=== PATIENT | female | born 1950 | race Caucasian/White ===

== ENCOUNTER 2017-09-01 15:15 | Inpatient (IN) | payer OTHER ==
[~2017-09-01] VITALS: Ht 152.4 cm; Wt 54.4 kg
[2017-09-02] MEDS ORDERED: EVISTA60 MG PO (08:42)
[2017-09-02] MEDS ORDERED: GABAPENTIN400 MG PO (08:42)
[2017-09-02] MEDS ORDERED: NORVASC2.5 M1 PO (08:42)
[2017-09-02] MEDS ORDERED: METFORMIN HCL500 MG PO (08:43)
[2017-09-02] MEDS ORDERED: RESTORIL30 M1 PO (08:43)
[2017-09-02] MEDS ORDERED: DIOVAN160 M1 PO (08:43)
[2017-09-02] MEDS ORDERED: LIPITOR20 MG PO (08:44)
[2017-09-09] MEDS ORDERED: PERCOCET 5-3251 EACH PO (10:48)
[2017-09-09] MEDS ORDERED: INTEGRA F CAPS1 EACH PO (10:48)
[2017-09-09] MEDS ORDERED: INTESTINEX680 M1 PO (10:48)
[2017-09-09] MEDS ORDERED: VITAMIN B-12500 MC3 SL (10:48)
== END 2017-09-09 14:27 | disposition home or self-care (01) | DRG 330 ==
LOC: O/R 09-06 05:56 → SURH 09-06 05:56
PROVIDERS: Surgery
PROC: 0DJD8ZZ Inspection of Lower Intestinal Tract, Via Natural or Artificial Opening Endoscopic (ICD-10-PCS; 2017-09-06)
PROC: 0DTN4ZZ Resection of Sigmoid Colon, Percutaneous Endoscopic Approach (ICD-10-PCS; principal; 2017-09-06 07:00)
PROC: 30233N1 Transfusion of Nonautologous Red Blood Cells into Peripheral Vein, Percutaneous Approach (ICD-10-PCS; 2017-09-08)
DX: K57.32 Diverticulitis of large intestine without perforation or abscess without bleeding (principal); D62 Acute posthemorrhagic anemia; E11.22 Type 2 diabetes mellitus with diabetic chronic kidney disease; N18.9 Chronic kidney disease, unspecified; Z79.4 Long term (current) use of insulin; I12.9 Hypertensive chronic kidney disease with stage 1 through stage 4 chronic kidney disease, or unspecified chronic kidney disease

== ENCOUNTER 2017-09-01 16:13 | Outpatient (CLI) | payer OTHER ==
[2017-09-02] MEDS ORDERED: EVISTA60 MG PO (08:42)
[2017-09-02] MEDS ORDERED: GABAPENTIN400 MG PO (08:42)
[2017-09-02] MEDS ORDERED: NORVASC2.5 M1 PO (08:42)
[2017-09-02] MEDS ORDERED: METFORMIN HCL500 MG PO (08:43)
[2017-09-02] MEDS ORDERED: RESTORIL30 M1 PO (08:43)
[2017-09-02] MEDS ORDERED: DIOVAN160 M1 PO (08:43)
[2017-09-02] MEDS ORDERED: LIPITOR20 MG PO (08:44)
== END 2017-09-01 16:21 | disposition home or self-care (01) ==
LOC: LAB 16:13
DX: N18.9 Chronic kidney disease, unspecified (principal); Z51.81 Encounter for therapeutic drug level monitoring